=== PATIENT | male | born 1975 | race African-American/Black ===

== ENCOUNTER 2018-08-05 09:45 | Emergency (ER) | payer OTHER ==
[~2018-08-05] VITALS: Ht 172.7 cm; Wt 77.6 kg
[2018-08-05 09:46] VITALS: BP 136/82
[2018-08-05] MEDS ORDERED: PROPARACAINE OPHTH 0.5%, 15ML ONE (10:00)
== END 2018-08-05 10:23 | disposition home or self-care (01) ==
LOC: ED 10:15
DX: H10.022 Other mucopurulent conjunctivitis, left eye (principal)
CPT/HCPCS: 99283